=== PATIENT | female | born 1950 | race African-American/Black ===

== ENCOUNTER 2017-07-19 21:32 | Inpatient (IN) | END 2017-07-25 18:08 | disposition home health service (06) | DRG 640 ==

== ENCOUNTER 2019-01-19 10:57 | Emergency (ER) | payer MEDICARE, BC ==
[~2019-01-19] VITALS: Ht 147.3 cm; Wt 53.3 kg
[~2019-01-19 10:57] MED LIST: AMOX1TAB10 PO; BENA20TA4 PO; FURO40TA4 PO; NPH10OT BOTH EARS; POLY10DR19 BOTH EYES
[2019-01-19 11:14] VITALS: BP 199/87; PULSE 95; RESP 20; Ht 147.3 cm; Wt 53.3 kg
--- NOTE | 2019-01-19 13:16 | ERD ---
ER Documentation Chief Complaint Chief Complaint EAR PAIN/SWELLING AND EYES TEARING HPI 68-year-old female presenting with bilateral ear pain and congestion to her eyes. Patient states that she wakes up in her eyes are glued shut. She denies any contacts or glasses use. Denies any use of medications. Medical history is renal disease on dialysis. Hypertension. Surgical history denies. Social history denies ROS All systems reviewed and are negative except as per history of present illness. Medications Home Meds Active Scripts Amoxicillin/Potassium Clav (Amox-Clav 875-125 mg Tablet) 875-125 mg Tab, 1 TAB PO BID for 7 Days, #14 TAB Prov:XAVIER ROTHMAN PA-C 01/19/19 Neomycin/Polymyxin/Hydrocort* (Cortisporin* Otic) 10 Ml Susp, 4 DROP BOTH EARS QID for 7 Days, EA Prov:XAVIER ROTHMAN PA-C 01/19/19 Polymyxin B Sulfate-TMP* (Polymyxin B-TMP Eye Drops*) 10 Ml Drops, 1 DROP BOTH EYES QID for 7 Days, EA Prov:XAVIER ROTHMAN PA-C 01/19/19 Reported Medications Furosemide* (Furosemide*) 40 Mg Tablet, 40 MG PO NEEDED, TAB 07/19/17 Benazepril Hcl* (Benazepril Hcl*) 20 Mg Tablet, 20 MG PO DAILY, #30 TAB 07/19/17 Allergies Allergies: Coded Allergies: morphine (Verified Allergy, Unknown, 07/19/17) PMhx/Soc History of Surgery: Yes (C/S, Thyroid sx) Anesthesia Reaction: No Hx Neurological Disorder: No Hx Respiratory Disorders: No Hx Cardiac Disorders: Yes (HTN) Hx Psychiatric Problems: No Hx Miscellaneous Medical Probl: Yes (Hyperkalemia, Anemia, ESRD-HD TTHS right chest catheter) Hx Alcohol Use: No Hx Substance Use: No Hx Tobacco Use: No Smoking Status: Never smoker FmHx Family History: No diabetes, No coronary disease, No other Physical Exam Vitals Vital Signs Date Temp Pulse Resp B/P (MAP) Pulse Ox O2 O2 Flow FiO2 Time Delivery Rate 01/19/19 98.2 95 20 199/87 100 11:14 (124) Physical Exam GENERAL: The patient is well-appearing, well-nourished, in no acute distress HEENT: Atraumatic. Conjunctivae are pink. Pupils equal, round, and reactive to light. There is no scleral icterus. Eyelids noted behind the right TM with mild bulging.: Noted to the external ear canal. No mastoid tenderness.. Oropharynx clear. Purulent discharge noted to bilateral eyelids with no injection of the sclera. NECK: C-spine is soft and supple. There is no meningismus. There is no cervical lymphadenopathy. CHEST: Clear to auscultation bilaterally. There are no rales, wheezes or rhonchi. HEART: Regular rate and rhythm. No murmurs, clicks, rubs or gallops. No S3 or S4. ABDOMEN:Soft, nontender and nondistended. Good bowel sounds. No rebound or guarding. No gross peritonitis. No gross organomegaly or masses. Procedures/MDM DM: 68-year-old female presenting with eye congestion and ear pain. I will treat for both bacterial conjunctivitis and otitis media. I will also give otic drops to cover for otitis externa given patient does have some tragal tenderness with swelling to the external ear canal. I do not feel blood work or imaging is indicated. Patient is discharged with strict ER precautions. All questions answered at discharge Departure Diagnosis: Primary Impression: Otitis media Additional Impression: Bacterial conjunctivitis Condition: Stable Patient Instructions: Otitis Media, Abx Tx [Child] Referrals: [facility] YOU HAVE RECEIVED A MEDICAL SCREENING EXAM AND THE RESULTS INDICATE THAT YOU DO NOT HAVE A CONDITION THAT REQUIRES URGENT TREATMENT IN THE EMERGENCY DEPARTMENT. FURTHER EVALUATION AND TREATMENT OF YOUR CONDITION CAN WAIT UNTIL YOU ARE SEEN IN YOUR DOCTORS OFFICE WITHIN THE NEXT 1-2 DAYS. IT IS YOUR RESPONSIBILITY TO MAKE AN APPOINTMENT FOR FOLOW-UP CARE. IF YOU HAVE A PRIMARY DOCTOR --you should call your primary doctor and schedule an appointment IF YOU DO NOT HAVE A PRIMARY DOCTOR YOU CAN CALL OUR PHYSICIAN REFERRAL HOTLINE AT IF YOU CAN NOT AFFORD TO SEE A PHYSICIAN YOU CAN CHOSE FROM THE FOLLOWING [facility] [address] [facility] [address] [facility] [facility] [address] [facility] [address] [facility]. [facility] [address], [facility]. [facility] [address] Additional Instructions: FOLLOW UP WITH YOUR PRIMARY CARE PHYSICIAN TOMORROW.Return to this facility if you are not improving as expected. XAVIER ROTHMAN PA-C Jan 19, 2019 13:16
== END 2019-01-19 11:47 | disposition home or self-care (01) ==
LOC: FTE 10:57
DX: H66.93 Otitis media, unspecified, bilateral (principal); I12.0 Hypertensive chronic kidney disease with stage 5 chronic kidney disease or end stage renal disease; N18.6 End stage renal disease; H10.9 Unspecified conjunctivitis
CPT/HCPCS: 99283